=== PATIENT | male | born 1985 | race Caucasian/White ===

== ENCOUNTER 2020-12-15 16:12 | Emergency (ER) | payer MEDICAID ==
[~2020-12-15] VITALS: Ht 172.7 cm; Wt 77.1 kg
--- NOTE | 2020-12-15 16:12 | NUR ---
PT BROUGHT TO BED 1 VIA [facility]
[2020-12-15 16:15] VITALS: BP 107/72
--- NOTE | 2020-12-15 16:30 | NUR ---
PER DR. JOHANSEN CODE BRAIN PROTOCOL INITIATED.
[2020-12-15] MEDS ORDERED: NACL 0.9% 1,000 ML IV ONE ×2 (16:35→17:45)
--- NOTE | 2020-12-15 16:35 | NUR ---
35/M BIBA from home for altered mental status. Per EMS patient was at home with his father who checked on him and found him unresponsive, per EMS father states last well known time was 10AM today. 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 Patient only responsive to pain. Dr. Lam aware of patient.
[2020-12-15 16:59] LABS: BASOPHILS % (AUTO) 0.3 % (0.0-2.0); EOSINOPHILS % (AUTO) 0.3 % (0.0-4.0); HEMATOCRIT 47.4 % (36-52); HEMOGLOBIN 16.2 g/dL (12.0-18.0); LYMPHOCYTES # (AUTO) 2.6 K/uL (2.0-11.5); LYMPHOCYTES % (AUTO) 40.8 % (20.5-51.1); MEAN CORPUSCULAR HEMOGLOBIN 34 pg (27-31); MEAN CORPUSCULAR HGB CONC 34 g/dL (33-37); MEAN CORPUSCULAR VOLUME 99.1 fL (80-94); MONOCYTES # (AUTO) 0.3 K/uL (0.8-1.0); MONOCYTES % (AUTO) 4.7 % (1.7-9.3); NEUTROPHILS # (AUTO) 3.4 K/uL (1.8-7.7); NEUTROPHILS % (AUTO) 53.9 % (42.2-75.2); PLATELET COUNT (AUTO) 296 K/uL (140-450); RED BLOOD CELL COUNT(AUTO) 4.79 MIL/uL (4.20-6.10); RED CELL DISTRIBUTION WIDTH 12.9 % (11.6-13.7); WHITE BLOOD COUNT (AUTO) 6.3 K/uL (4.8-10.8)
--- NOTE | 2020-12-15 17:15 | NUR ---
Patient pulled IV line out, bleeding controlled, new IV established.
[2020-12-15 17:21] LABS: PROTHROMBIN TIME 10.2 secs (10.8-13.4)
[2020-12-15 17:36] LABS: BARBITURATE, URINE NEGATIVE ng/ml (NEG <=200); BENZODIAZEPINE, URINE POSITIVE ng/mL (NEG <=200); CANNABINOID, URINE POSITIVE ng/mL (NEG <=50); COCAINE, URINE NEGATIVE ng/mL (NEG <=300); OPIATE, URINE NEGATIVE ng/mL (NEG <=2000); PHENCYCLIDINE SCREEN,URINE NEGATIVE ng/mL (NEG <=25)
[2020-12-15 17:38] LABS: ALBUMIN 3.3 g/dL (3.4-5.0); ANION GAP 19.5 (8-16); ASPARTATE AMINOTRANSFERASE 16 U/L (15-37); CARBON DIOXIDE 19.6 mmol/L (21-32); CHLORIDE 111 mmol/L (98-107); GFR ARICAN-AMERICAN 109 mL/min (>90); GLUCOSE 116 mg/dL (74-106); POTASSIUM 4.1 mmol/L (3.5-5.1); SODIUM SERUM 146 mmol/L (136-145); TOTAL BILIRUBIN 0.2 mg/dL (0.0-1.0); UREA NITROGEN, BLOOD 13 mg/dL (7-18)
[2020-12-15 17:39] LABS: ACETAMINOPHEN < 0.5 ug/ml (10-30); SALICYLATE < 2.8 mg/dL (2.8-20.0)
--- NOTE | 2020-12-15 18:20 | NUR ---
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
--- NOTE | 2020-12-15 19:14 | NUR ---
Patient laying in bed locked in lowest position, HOB slightly elevated. x2 side rails up for patient safety w seizure precautions in place. Patient GCS 7, withdrawl to pain only, PERRL AT 5mm, breathing even and unlabored. Patient connected to monitor w vss. NAD noted, will continue to monitor.
--- NOTE | 2020-12-15 19:14 | NUR ---
Report received from GUERO Christina for continuation of patient care at this time.
--- NOTE | 2020-12-15 19:14 | NUR ---
Pt report given to Kourtney. Transfer of care at this time.
--- NOTE | 2020-12-15 21:00 | NUR ---
NO ammonia INH avaiable in ER. Contacted Manager [employer] Richie to acquire medication.
[2020-12-15] MEDS ORDERED: AMMONIA AROMATIC 1 INHL INH ONE (21:05)
--- NOTE | 2020-12-15 21:23 | NUR ---
Patient laying in bed supine w eyes closed, locked in lowest postion, HOB slightly elevated. Breathing even and unlabored. VSS. Will continue to monitor.
--- NOTE | 2020-12-15 21:54 | NUR ---
Per supervisor [employer], no ammonia INHL available at this time and contacted pharmacy for it. Awaiting on ammonia INHL.
--- NOTE | 2020-12-16 01:30 | NUR ---
Patient awaken s/p ammonia INHL, patient laying down prone w vss. Patient refusing to talk or communicate w staff. ERMD made aware.
--- NOTE | 2020-12-16 03:14 | NUR ---
PATIENT LAYING IN BED LOCKED IN LOWEST POSITION X2 SIDERAILS UP FOR PATIENT SAFETY W VSS. PATIENT EYES CLOSED, BREATHING EVEN AND UNLABORED, NAD NOTED. WILL CONTINUE TO MONITOR.
--- NOTE | 2020-12-16 05:41 | NUR ---
PATIENT SITTING IN BED. PATIENT AOX4, GCS 15. PATIENT REPORTS HE TOK DEPAKOTE AND ATIVAN UNNOWN DOSAGE. PATIENT DENIES ANY PAIN. VSS. NAD NOTED, WILL CONTINUE TO MONITOR. PMH: EPILEPSY, DIABETES NKA
--- NOTE | 2020-12-16 07:10 | NUR ---
Pt report given to GUERO GAMEZ. Transfer of care at this time.
--- NOTE | 2020-12-16 07:15 | NUR ---
RECEIVED REPORT FROM LEIDY JACK, TRANSFER OF CARE AT THIS TIME PT LAYING IN BED WITH EVEN AND UNLABORED RESPIRATIONS. VSS. PT A/O X4. ATTEMPTING TO ASK PT HIS FATHERS PHONE NUMBER, BUT PT IS NOT ABLE TO RECALL. WILL ATTEMPT AT A LATER TIME.
--- NOTE | 2020-12-16 08:30 | NUR ---
PT SLEEPING IN BED WITH EVEN AND UNLABORED RESPIRATIONS. VSS. WILL CONTINUE TO MONITOR
[2020-12-16 08:50] VITALS: BP 116/82
--- NOTE | 2020-12-16 09:28 | NUR ---
SPOKE WITH PTS FATHER WITH UPDATE, WILL BE HERE SHORTLY TO PICK HIM UP.
--- NOTE | 2020-12-16 10:00 | NUR ---
IV removed, catheter intact and site benign. Applied folded 4x4 gauze and tape to stop bleeding.
--- NOTE | 2020-12-16 10:10 | NUR ---
PT PASSED ROAD TEST SUCCESSFULLY. AMBULATORY WITH STEADY GAIT. A/O X4 WITH EVEN AND UNLABORED RESPIRATIONS
--- NOTE | 2020-12-16 10:20 | NUR ---
Patient discharged with v/s stable. Written and verbal after care instructions ABOUT ALCOHOL INTOXICATION given and explained. Patient verbalized understanding. Wheel Chair Assisted with to car. All questions addressed prior to discharge. Advised to follow up with PMD.
== END 2020-12-16 10:20 | disposition home or self-care (01) ==
LOC: MED 16:12
DX: F10.129 Alcohol abuse with intoxication, unspecified (principal); F15.90 Other stimulant use, unspecified, uncomplicated; R41.82 Altered mental status, unspecified
CPT/HCPCS: 36415; 70450; 80053; 80305; 85025; 85610; 93005; 96360; 96361; 99285; G0480; G0482; J7030